=== PATIENT | male | born 1970 | race Caucasian/White ===

== ENCOUNTER 2017-12-23 06:08 | Inpatient (IN) | payer BC ==
[~2017-12-23 06:08] MED LIST: Buffered Lidocaine 0.9% SYRIN* 5 ML/SYR SYRINGE INTRADERM ONE; Sodium Citrate/Citric Acid* 15 ML UDC PO ONE
[2017-12-23] MEDS ORDERED: Buffered Lidocaine 0.9% SYRIN* 5 ML/SYR SYRINGE ONE (06:15)
[2017-12-23] MEDS ORDERED: Sodium Citrate/Citric Acid* 15 ML UDC ONE (06:15)
--- OUTSIDE RECORDS SUMMARY | 2017-12-23 06:15 | XMS REPORT ---
:1970 External Reference #:[id number] Author Organization [facility] [employer] Address [address] [address] Phone [phone] Care Team Providers Name Role Phone Marleni Camejo MD Primary Care Physician Unavailable Payers Type Date Identification Numbers Payment Provider Subscriber Commercial Effective: Policy Number: TERA Graham Ruiz 2014 [id number] PayID: [id number] [address] [address] [place] [address] Medigap Part B Expires: 2015 Policy Number: BS Hever ANDREW Ruiz [id number] PayID: [id number] [address] [address] [place] [address] Problems Date Description Provider Status Onset: 02/15/2015 Musculoskeletal symptom James Yanez M.D. Active Onset: 02/15/2015 Muscle atrophy James Yanez M.D. Active Onset: 10/12/2017 Cervical disc disorder Rosibel Sparks MD Active Onset: 10/12/2017 Cervical spondylosis Rosibel Sparks MD Active Onset: 06/17/2015 Arthrodesis status James Yanez M.D. Active Onset: 06/17/2015 Convalescence after surgery James Yanez M.D. Active Onset: 04/08/2015 Brachial neuritis James Yanez M.D. Active Family History Date Family Member(s) Problem(s) Comments General Diabetes General Hypertension Social History Type Date Description Comments Occupation Currently Working Occupation Import Export Manager ETOH Use Denies alcohol use Recreational Drug Use Denies Drug Use Smoking Patient is a former smoker Allergies, Adverse Reactions, Alerts Date Description Reaction Status Severity Comments 02/15/2015 Penicillin Nausea and Vomiting active 02/15/2015 Any & ALL Cillians Nausea and Vomiting active Medications Medication Date Status Form Strength Qnty SIG Indications Ordering Provider Bupropion HCL ER 00/00/ Active Tablets ER 300mg 1 PO qd Unknown (XL) 0000 24HR with 150mg Lyrica 00/ Active Capsules 150mg 1 by Unknown 0000 mouth twice a day Bupropion HCL ER 00/00/ Active Tablets ER 150mg 1 PO qd Unknown (XL) 0000 24HR with 300mg Atorvastatin 00/ Active Tablets 10mg 1 by Unknown Calcium 0000 mouth every day Cyclobenzaprine / Active Tablets 10mg 1 tablet Unknown HCL 0000 by mouth q8 hours as needed muscle spasms Zestril / Active Tablets 20mg 1 by Unknown 0000 mouth every day Diazepam 02/15/ Hx Tablets 5mg 6tabs 1 or 2 James Gee 2015 - by mouth Renata 03/12/ two M.Tabitha 2015 hours prior to mri, repeat up to once per hour if needed. Tramadol HCL 02/20/ Hx Tablets 50mg 60tabs 1-2 PO James Gee 2009 - qid prjanet Yanez, 02/15/ M.Tabitha 2015 [place] 02/15/ Hx Tablets 5-325mg 60tabs 1-2 po James Gee 2008 - q4h prn Renata, 02/15/ MKelly 2015 Robaxin 02/15/ Hx Tablets 500mg 90tabs 1-3 PO James Gee 2009 - tid maricruzn Renata, 02/15/ Spasm M.Tabitha 2015 Ibuprofen 02/15/ Hx Tablets 800mg 45tabs 1 PO Up James Gee 2008 - To tid Renata, 02/15/ maninder Weiss 2014 Gabapentin / Hx Capsules 300mg 1 by Unknown 0000 - mouth 08/05/ twice a 2014 day Lisinopril / Hx Tablets 10mg 1 by Unknown 0000 - mouth 11/02/ 2017 day Vital Signs Date Vital Result Comment 12/15/2017 Height 72 inches 6'0" Weight 206.00 lb BP Systolic Sitting 112 mmHg BP Diastolic Sitting 78 mmHg Pain Level 7 BMI (Body Mass Index) 27.9 kg/m2 11/02/2017 Height 72 inches 6'0" Weight 206.00 lb Heart Rate 78 /min BP Systolic Sitting 132 mmHg BP Diastolic Sitting 78 mmHg Pain Level 7 BMI (Body Mass Index) 27.9 kg/m2 10/12/2017 Height 72 inches 6'0" Weight 200.00 lb Heart Rate 80 /min BP Systolic Sitting 126 mmHg BP Diastolic Sitting 72 mmHg Pain Level 4 BMI (Body Mass Index) 27.1 kg/m2 11/08/2015 Heart Rate 67 /min BP Systolic Sitting 148 mmHg BP Diastolic Sitting 88 mmHg Pain Level 2 08/05/2015 Height 72 inches 6'0" Weight 179.00 lb Heart Rate 84 /min BP Systolic Sitting 128 mmHg BP Diastolic Sitting 82 mmHg Pain Level 0 BMI (Body Mass Index) 24.3 kg/m2 06/17/2015 Height 72 inches 6'0" Weight 179.00 lb Heart Rate 76 /min BP Systolic Sitting 136 mmHg BP Diastolic Sitting 80 mmHg Pain Level 2 neck BMI (Body Mass Index) 24.3 kg/m2 05/13/2015 Height 72 inches 6'0" Weight 176.00 lb Heart Rate 78 /min BP Systolic Sitting 126 mmHg BP Diastolic Sitting 88 mmHg Pain Level 5 back BMI (Body Mass Index) 23.9 kg/m2 04/08/2015 Heart Rate 71 /min BP Systolic Sitting 132 mmHg BP Diastolic Sitting 80 mmHg Pain Level 3 03/12/2015 Height 72 inches 6'0" Weight 176.00 lb Heart Rate 78 /min BP Systolic Sitting 128 mmHg BP Diastolic Sitting 84 mmHg Pain Level 2 R arm BMI (Body Mass Index) 23.9 kg/m2 02/15/2015 Height 72 inches 6'0" Weight 176.00 lb Heart Rate 82 /min BP Systolic Sitting 130 mmHg BP Diastolic Sitting 88 mmHg Pain Level 0 BMI (Body Mass Index) 23.9 kg/m2 Results Test Date Test Result H/L Range Note CBC No Diff 05/17/2015 White Blood Count 7.0 10^3/uL 4.8-10.8 1 Red Blood Count 4.14 10^6/uL 4.0-5.4 1 Hemoglobin 13.4 g/dL Low 14.0-18.0 1 Hematocrit 40 % Low 42-52 1 Mean Corpuscular Volume 96 fL High 80-94 1 Mean Corpuscular Hemoglobin 32 pg High 27-31 1 Mean Corpuscular HGB Conc 34 g/dL 31-36 1 Red Cell Distribution Width 13 % 10.5-15 1 Platelet Count 242 10^3/uL 150-450 1 Mean Platelet Volume 8 um3 7.4-10.4 1 Type & Screen 05/17/2015 Patient Blood Type AB Positive 1 Antibody Screen NEGATIVE 1 1 SDS 05/23/15 Procedures Date CPT Code Description Status 10/29/2017 20418 Nerve Conduction 05-06 Studies Completed 10/29/2017 05114 Needle Electromyography Complete, Five Or More Muscles Completed Studied 05/23/2015 61529 Anterior Instrumentation 2-3 Vertebral Segments Completed 05/23/2015 43407 arthrodesis,anterior interbody incl disc space Completed prep,discectomy,de 05/23/2015 88977 Allograft For Spine Surgery,Structural (Bone Bank) Completed 03/22/2015 71234 Nerve Conduction 03-04 Studies Completed 03/22/2015 83092 Needle Electromyography Complete, Five Or More Muscles Completed Studied Encounters Type Date Location Provider CPT E/M Dx Office Visit 11/02/2017 [facility] [place] 57354 M50.122 2:00p Of Beatriz Sparks MD M47.892 M50.121 M50.123 M47.12 Z98.1 Office Visit 10/12/2017 1:30p [facility] [place] [address] M47.892 Of Beatriz Sparks MD M50.122 Office Visit 11/08/2015 10:40a [facility] James Yanez 03229 Z98.1 Of Beatriz Weiss M54.12 Office Visit 05/13/2015 9:40a [facility] James Yanez 62404 721.1 Of Beatriz Weiss 723.4 Office Visit 04/08/2015 3:00p [facility] James Yanez 37040 721.1 Of Beatriz Weiss 723.4 Office Visit 03/12/2015 10:00a [facility] James Yanez 60377 728.2 Of Beatriz Weiss 721.1 Office Visit 02/15/2015 3:00p [facility] James Yanez 12560 729.89 Of Beatriz Weiss 728.2 721.1 Office Visit 02/15/2009 1:00p [facility] James Yanez 88020 721.1 Of Beatriz Weiss Office Visit 02/05/2009 1:00p [facility] James Yanez 89224 721.1 Of [facility] [place] Plan of Care Future Appointment(s):12/29/2017 9:00 am - Rosibel Sparks MD at [facility]12/23/2017 7:30 am - Rosibel Sparks MD at [facility]12/15/2017 - Rosibel Sparks, MDM50.122 Cervical disc disorder at C5-C6 level with qirwzuvzvrrczH18.892 Other spondylosis, cervical regionFollow up:RV one week owmeqjI87.121 Cervical disc disorder at C4-C5 level with vwehmenjtgbgmV12.123 Cervical disc disorder at C6- C7 level with iijykzytibgvyV95.12 Other spondylosis with myelopathy, cervical region
[2017-12-23] MEDS ORDERED: Remifentanil* 2 MG VIAL ONE ×2 (06:58→13:35)
[2017-12-23] MEDS ORDERED: Propofol* 10 MG/ML 20 ML BTL IV PUSH ONE ×5 (06:58→13:30)
[2017-12-23] MEDS ORDERED: fentaNYL* 50 MCG/ML 5 ML VIAL (250 MCG VIAL) ONE (06:58)
[2017-12-23] MEDS ORDERED: Lidocaine 1% MPF wEPI 200,000* 30 ML SDV ONE (06:58)
[2017-12-23] MEDS ORDERED: Propofol* 100 ML ONE ×2 (06:58→09:44)
[2017-12-23] MEDS ORDERED: Thrombin 5,000 UNITS* 1 APPLIC KIT - topical use - TOPICAL ONE (06:58)
[2017-12-23] MEDS ORDERED: Bacitracin IV* 50,000 UNITS INJ ONE ×3 (06:59→13:49)
[2017-12-23] MEDS ORDERED: Vancomycin 1500 MG IV - x ONCE IVPB ONE ×2 (07:00)
[2017-12-23] MEDS ORDERED: Dexamethasone IV* 4 MG/ML 1 ML (4 MG) ONE (09:21)
[2017-12-23] MEDS ORDERED: Magnesium Hydroxide LIQ* 30 ML UDC PO PRN (14:17)
[2017-12-23] MEDS ORDERED: Acetaminophen TAB* 325 MG PO PRN (14:17)
[2017-12-23] MEDS ORDERED: Ondansetron INJ* 2 MG/ML VIAL IV PRN (14:17)
[2017-12-23] MEDS ORDERED: Naloxone* 0.4 MG/ML 1 ML VIAL IV PRN (15:16)
[2017-12-23] MEDS ORDERED: fentaNYL* 50 MCG/ML 2 ML VIAL (100 MCG VIAL) ONE (15:24)
[2017-12-23] MEDS: fentaNYL* 50 MCG/ML 2 ML VIAL (100 MCG VIAL) IV PRN ×2 (15:25→15:57)
[2017-12-23] MEDS: Cyclobenzaprine TAB* 10 MG PO PRN (17:44)
[2017-12-23] MEDS: HYDROcodone/ACETAMIN 5-325 MG* 1 TAB PO PRN ×2 (17:44→21:49)
--- NOTE | 2017-12-23 18:30 | RAD ---
CPT II Codes: G9500 INDICATION: Neck fusion. 35.1 seconds of fluoroscopy time was used. Over [address] was performed for intraoperative control. IMPRESSION: Fluoroscopic services provided for referring physician for cervical fusion.
[2017-12-23] MEDS: Pregabalin CAP(*) 50 MG PO SCH (20:25)
[2017-12-23] MEDS: Morphine VIAL* 4 MG/ML VIAL (1 ml vial) IV PRN (23:52)
[2017-12-24] MEDS: HYDROcodone/ACETAMIN 5-325 MG* 1 TAB PO PRN ×3 (03:58→13:34)
[2017-12-24] MEDS: Cyclobenzaprine TAB* 10 MG PO PRN ×2 (03:58→11:21)
[2017-12-24] MEDS: Pregabalin CAP(*) 50 MG PO SCH ×2 (08:18→19:56)
[2017-12-24] MEDS: Lisinopril TAB* 10 MG PO SCH (08:18)
[2017-12-24] MEDS: Atorvastatin* 10 MG TAB PO SCH (08:19)
[2017-12-24] MEDS: BuPROPion XL* 150 MG TAB.XL PO SCH (08:19)
--- NOTE | 2017-12-24 08:53 | RAD ---
INDICATION: Cervical fusion. COMPARISON: There are no prior studies available for comparison. TECHNIQUE: 35.1 seconds of intermittent fluoroscopic guidance were provided and 14 spot films of the cervical spine were obtained in the operating room. FINDINGS: The films demonstrate multiple surgical instruments present. The patient is undergoing an anterior and posterior spinal fusion. There appear to be metallic plates anterior to the C3-C4 and also C5-C6 vertebral bodies transfixed with surgical screws. There is also a posterior spinal fusion which extends from the C3 through the C7 levels. IMPRESSION: INTRAOPERATIVE CONTROL FILMS. CPT II Codes: G9500
--- NOTE | 2017-12-24 09:05 | RAD ---
HISTORY: Postop cervical fusion COMPARISONS: None VIEWS: 2, frontal and lateral views of the cervical spine FINDINGS: The cervical spine is visualized from the skull base through C7-T1. ALIGNMENT: There is straightening of the normal cervical lordosis. VERTEBRAL BODIES: Is status post anterior cervical fusion at C3 and C4 and C5 and C6. There are lateral mass screws at C3, C4, C5, C6, with pedicle screws at C7. There is no hardware failure or osteolysis. JOINTS: There is no subluxation or dislocation. The facet joints are unremarkable. INTERVERTEBRAL DISCS: There is diffuse loss of intervertebral disc height. SOFT TISSUE: The prevertebral soft tissues are normal. OTHER: The skull base is normal. The lung apices are clear. IMPRESSION: STATUS POST ANTERIOR AND POSTERIOR CERVICAL FUSION
[2017-12-24] MEDS: Morphine VIAL* 4 MG/ML VIAL (1 ml vial) IV PRN ×3 (12:37→21:25)
[2017-12-24] MEDS ORDERED: oxyCODONE/Acetamin 5/325 MG* TAB PO PRN (16:51)
[2017-12-24] MEDS: Diazepam TAB(*) 5 MG PO PRN (17:33)
[2017-12-24] MEDS: oxyCODONE/Acetamin 5/325 MG* TAB PO PRN ×2 (17:34→23:29)
[2017-12-24] MEDS: Famotidine TAB* 20 MG PO SCH (17:34)
[2017-12-24] MEDS ORDERED: Morphine VIAL* 4 MG/ML VIAL (1 ml vial) IV ONE ×2 (19:49→20:00)
--- NOTE | 2017-12-24 22:37 | PN ---
Progress Note - Progress Note Date of Service: 12/24/17 SOAP: Subjective: []Patient was seen earlier twice during the day. No events ON. On MJ collar. Tolerates po well, Ambulates, Voids. Preop Rt UE pain and numbness resolved Objective: []VSS Afebrile Wound soft, Clean, Dry. Drain in place. Output noted AAOx3 EDWARD, CN II-XII grossly intact. Motor 4-5/5 all extremities, except RUE 4-/5 as preop Sensory grossly intact to light touch Assessment: []47 yom POD#1 C3-C7 PCDF Plan: []Monitor VS, Neurochecks Encourage ambulation PT DC drain in am C spine XR DC planning. Trinh Sparks MD
[2017-12-25] MEDS: Diazepam TAB(*) 5 MG PO PRN (01:34)
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
[2017-12-25] MEDS: Morphine VIAL* 4 MG/ML VIAL (1 ml vial) IV PRN (03:54)
[2017-12-25] MEDS: oxyCODONE/Acetamin 5/325 MG* TAB PO PRN ×3 (07:39→20:59)
[2017-12-25] MEDS: Famotidine TAB* 20 MG PO SCH ×2 (07:39→20:59)
[2017-12-25] MEDS: Pregabalin CAP(*) 50 MG PO SCH ×2 (07:39→20:58)
[2017-12-25] MEDS: BuPROPion XL* 150 MG TAB.XL PO SCH (07:39)
[2017-12-25] MEDS: Atorvastatin* 10 MG TAB PO SCH (07:40)
[2017-12-25] MEDS: Lisinopril TAB* 10 MG PO SCH (07:40)
[2017-12-25] MEDS ORDERED: LORazepam TAB(*) 0.5 MG ONE (08:54)
[2017-12-25] MEDS ORDERED: LORazepam TAB(*) 0.5 MG PO PRN (09:10)
--- NOTE | 2017-12-25 15:11 | PN ---
Progress Note - Progress Note Date of Service: 12/25/17 SOAP: Subjective: []No events ON, except muscle spasm pain . Medications adjusted. On MJ collar. Tolerates po well, Ambulates, Voids. Feels better this am. Objective: [] VSS Afebrile Wound soft, Clean, Dry. Drain removed. Catheter appeared to be intact. Patient tolerated procedure well. AAOx3 EDWARD, CN II-XII grossly intact. Motor 4-5/5 all extremities, except RUE 4-/5 as preop Sensory grossly intact to light touch Assessment: []47 yom POD#1 C3-C7 PCDF Plan: [] Monitor VS, Neurochecks Encourage ambulation PT, IS C spine XR yest revealed good placement of hardware and alignment of the spine. DC planning. Trinh Sparks MD
[2017-12-26] MEDS: oxyCODONE/Acetamin 5/325 MG* TAB PO PRN (07:33)
[2017-12-26] MEDS: Pregabalin CAP(*) 50 MG PO SCH (10:06)
[2017-12-26] MEDS: BuPROPion XL* 150 MG TAB.XL PO SCH (10:06)
[2017-12-26] MEDS: Famotidine TAB* 20 MG PO SCH (10:07)
[2017-12-26] MEDS: Lisinopril TAB* 10 MG PO SCH (10:07)
[2017-12-26] MEDS: Atorvastatin* 10 MG TAB PO SCH (10:07)
--- NOTE | 2017-12-26 12:29 | PN ---
Progress Note - Progress Note Date of Service: 12/26/17 SOAP: Subjective: [] No events ON. On MJ collar. Tolerates po well, Ambulates, Voids. Feels better this am, wants to go home. Objective: []VSS Afebrile Wound soft, Clean, Dry. AAOx3 EDWARD, CN II-XII grossly intact. Motor 4-5/5 all extremities, except RUE 4-/5 as preop Sensory grossly intact to light touch Assessment: []47 yom POD#3 C3-C7 PCDF Plan: [] Monitor VS, Neurochecks Encourage ambulation PT, IS DC today. Full instructions were given to patient and his significant other. Trinh Sparks MD
[2017-12-26 14:17] VITALS: BP 115/73
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
== END 2017-12-26 14:55 | disposition home or self-care (01) | DRG 23 ==
LOC: AA 06:08 → SSU 16:41
PROVIDERS: ADMIT Neurological Surgery; ATTEND Neurological Surgery
PROC: 4A11X4G Monitoring of Peripheral Nervous Electrical Activity, Intraoperative, External Approach (ICD-10-PCS; 2017-12-23)
PROC: 8E09XBZ Computer Assisted Procedure of Head and Neck Region (ICD-10-PCS; 2017-12-23)
PROC: 0RG2071 Fusion of 2 or more Cervical Vertebral Joints with Autologous Tissue Substitute, Posterior Approach, Posterior Column, Open Approach (ICD-10-PCS; principal; 2017-12-23 07:30)
DX: M50.11 Cervical disc disorder with radiculopathy, high cervical region (principal); G95.89 Other specified diseases of spinal cord; M48.02 Spinal stenosis, cervical region; F32.9 Major depressive disorder, single episode, unspecified; F10.21 Alcohol dependence, in remission; M25.78 Osteophyte, vertebrae; R53.1 Weakness; M47.812 Spondylosis without myelopathy or radiculopathy, cervical region; I10 Essential (primary) hypertension; F41.9 Anxiety disorder, unspecified; Z98.1 Arthrodesis status; Z88.0 Allergy status to penicillin; Z89.012 Acquired absence of left thumb; Z88.1 Allergy status to other antibiotic agents; Z88.8 Allergy status to other drugs, medicaments and biological substances; Z82.49 Family history of ischemic heart disease and other diseases of the circulatory system; Z83.3 Family history of diabetes mellitus; Z83.511 Family history of glaucoma; Z84.1 Family history of disorders of kidney and ureter; Z87.891 Personal history of nicotine dependence
CPT/HCPCS: 36415; 72020; 72040; 76001; 84300; A9270-GY; J1100; J2001; J2270; J2405; J2704; J3010; J3370